=== PATIENT | female | born 1960 | race Hispanic/Latino ===

== ENCOUNTER 2020-03-01 16:23 | Emergency (ER) | payer SELFPAY ==
[~2020-03-01] VITALS: Ht 157.5 cm; Wt 90.7 kg
[2020-03-01] MEDS ORDERED: IBUPROFEN IB200 MG PO (16:54)
[2020-03-01] MEDS ORDERED: TYLENOL # 31 EA PO (16:54)
[2020-03-01] MEDS ORDERED: ACETAMINOPHEN 325 MG TAB PO ONE (18:15)
[2020-03-01] MEDS ORDERED: IBUPROFEN 200 MG TAB PO ONE (18:15)
== END 2020-03-01 18:29 | disposition home or self-care (01) ==
LOC: FSED 16:30
DX: S13.4XXA Sprain of ligaments of cervical spine, initial encounter (principal); V53.6XXA Passenger in pick-up truck or van injured in collision with car, pick-up truck or van in traffic accident, initial encounter; Y92.488 Other paved roadways as the place of occurrence of the external cause; I10 Essential (primary) hypertension; E03.9 Hypothyroidism, unspecified
CPT/HCPCS: 71046; 72040; 99283